=== PATIENT | female | born 1985 | race Caucasian/White ===

== ENCOUNTER 2019-05-18 10:21 | Outpatient (CLI) | payer OTHER, SELFPAY ==
--- NOTE | 2019-05-18 10:35 | US_ITS ---
WS: [id number] ULTRASOUND THYROID TECHNIQUE: Ultrasound of the thyroid. CLINICAL INFORMATION: ENLARGED THYROID COMPARISON: None. FINDINGS: Thyroid: Right and left thyroid lobes are normal in size and echotexture. Right thyroid lobe: 4.9 cm x 1.5 cm x 1.3 cm Heterogeneous solid right thyroid nodule measuring 11 x 6.6 x 5.8 mm. Smaller hypoechoic cystic appearing nodule measuring 4.4 x 2.5 x 3.2 mm Left thyroid lobe: 4.5 cm x 1.5 cm x 1.5 cm. Isthmus: 0.2 mm. Cervical lymphadenopathy: None. NOTE: Report was unsigned for reason: Ordering provider was edited. Original Signature date and time was: 05/18/19 1207 [facility] US/US thyroid [id number] IMPRESSION: 1. Heterogeneous solid right thyroid nodule measuring 11 x 6.6 x 5.8 mm. Recom mend 12 month follow-up. 2. Smaller hypoechoic cystic appearing right nodule measuring 4.4 mm likely in cidental 3. No left-sided nodules.
== END 2019-05-18 10:22 | disposition home or self-care (01) ==
LOC: RAD 10:25
PROVIDERS: PCP Nurse Practitioner Family; Visit Provider Nurse Practitioner Family
DX: E04.9 Nontoxic goiter, unspecified (principal); E04.1 Nontoxic single thyroid nodule
CPT/HCPCS: 76536

== ENCOUNTER → 2022-03-27 13:40 | Outpatient (BNVA) | payer OTHER, SELFPAY | PROVIDERS: PCP Nurse Practitioner Family; Visit Provider Nurse Practitioner Family | DX: Z20.822 Contact with and (suspected) exposure to COVID-19 (principal); R50.9 Fever, unspecified | CPT/HCPCS: 87400; 87426; 87880 ==

== ENCOUNTER 2025-02-16 11:18 | Outpatient (CLI) | payer OTHER, SELFPAY ==
--- NOTE | 2025-02-16 11:20 | MM_ITS ---
WS: [id number] BILATERAL 3D TOMOSYNTHESIS DIGITAL SCREENING MAMMOGRAPHY WITH CAD CLINICAL INFORMATION: SCREENING HISTORY: Screening mammogram. No current complaints. COMPARISON: Baseline TECHNIQUE: Bilateral CC and MLO views. FINDINGS: Scattered fibroglandular densities bilaterally. No suspicious focal mass, asymmetry, calcifications, or architectural distortion. No evidence of malignancy. MM/MM scr BI tomosynthesis [id number] IMPRESSION: DENSITY: There are scattered areas of fibroglandular density. BI-RADS: 1 - Negative. FOLLOW UP: 1 Year Follow-up Recommend return to annual screening mammography.
== END 2025-02-16 11:19 | disposition home or self-care (01) ==
PROVIDERS: PCP Nurse Practitioner Family; Visit Provider Nurse Practitioner Family
DX: Z12.31 Encounter for screening mammogram for malignant neoplasm of breast (principal); R92.323 Mammographic fibroglandular density, bilateral breasts
CPT/HCPCS: 77063; 77067